=== PATIENT | female | born 1985 | race Two or more races ===

== ENCOUNTER 2020-04-17 09:33 | Outpatient (CLI) | payer OTHER | END 2020-04-17 11:16 | disposition home or self-care (01) | LOC: RX STUDY 09:33 | PROVIDERS: ATTEND Obstetrics & Gynecology | DX: N88.8 Other specified noninflammatory disorders of cervix uteri (principal); N72 Inflammatory disease of cervix uteri ==

== ENCOUNTER 2020-05-13 09:16 | Outpatient (CLI) | payer OTHER | END 2020-05-13 09:38 | disposition home or self-care (01) | LOC: SONOGRAMA 09:16 → MAMO-SONO 15:15 | PROVIDERS: ATTEND Obstetrics & Gynecology Reproductive Endocrinology | DX: D25.1 Intramural leiomyoma of uterus (principal); N93.8 Other specified abnormal uterine and vaginal bleeding ==